=== PATIENT | male | born 1945 | race Caucasian/White ===

== ENCOUNTER 2017-07-26 10:31 | Outpatient (CLI) | payer MEDICARE, OTHER ==
[~2017-07-26] VITALS: Ht 188 cm; Wt 80.9 kg
--- NOTE | ~2017-07-26 | HEMODYNAMI ---
PATIENT:ORA BOLAÑOS MEDICAL RECORD: [id number] : 47 LOCATION:EMILY ADMISSION DATE: 07/26/17 Generatedon:07/26/201713:30 Patient name: ORA BOLAÑOS Patient #: [id number] SSN: DO B: 1945 Date of study: 07/26/2017 Page: Of Hemodynamic Procedure Report Patient Data Patient Demographics Procedure consent was obtained First Name: ORA Gender: Male Last Name: MAMI : 1945 [facility] Initial: REA Age: 72 year(s) Patient #: [id number] Race: Unknown Additional ID: [id number] Contact details Address: [address] [place] [address] [address] State: [place] City: [place] Zip code: [address] Past Medical History Allergies: No known allergies Admission Admission Data Admission Date: 07/26/2017 Admission Time: 10:31 Height (in.): 6.2 BSA: 0.34 (m2) Height (cm.): 15.75 BMI: 3237.34 (kg/m2) Weight (lbs.): 177 Weight (kg.): 80.29 Lab Results Lab Result Date: 07/26/2017 Lab Result Time: 0:00 Biochemistry Name Units Result Min Max BUN mg/dl 13 --(--*-)-- 7 18 Creatinine mg/dl 1.1 --(--*-)-- 0.6 1.3 CBC Name Units Result Min Max Hemoglobin g/dl 11.1 *-(----)-- 13.5 17.5 Procedure Procedure Types Cath Procedure Diagnostic Procedure C [facility] w/Coronaries Sedation Charges Moderate Sedation up to 30 minutes Procedure Description Procedure Date Procedure Date: 07/26/2017 Procedure Start Time: 13:06 Procedure End Time: 13:29 Procedure Staff Name Function Anton Gonzalez MD Performing Physician Nguyen Bush RT Monitor Saman Lyons RT Scrub Sal Barnes RN Nurse Procedure Data Cath Procedure Fluoroscopy Diagnostic fluoroscopy Total fluoroscopy Time: 1.5 time: 1.5 min min Diagnostic fluoroscopy Total fluoroscopy dose: 384 dose: 384 mGy mGy Contrast Material Contrast Material Type Amount (ml) Isovue 300 64 Entry Location Entry Primary Successful Side Size Upsize Upsize Entry Closure Succes sful Closure Location (Fr) 1 (Fr) 2 (Fr) Remarks Device Remarks Femoral Right 5 Fr Exoseal artery Estimated blood loss: 5 ml Diagnostic catheters Device Type Used For End Catheter Placement MULTIPACK JL 4.0 5Fr Procedure catheter MULTIPACK 3DRC 5Fr Procedure catheter MULTIPACK Pigtail 5 Fr Procedure catheter Procedure Complications No complications Procedure Medications Medication Administration Route Dosage 0.9% NaCl I.V. 100 ml/hr Oxygen etCO2 Nasal cannula 2 l/min Heparin Flush Bag added to field 2 bags (1000units/500ml NS) Lidocaine 2% added to field 20 Radial Cocktail added to field 1 syringe (Verapomil 2mg/Nitro 400mcg/Heparin 1500units) Versed I.V. 1 mg Fentanyl I.V. 50 mcg Versed I.V. 1 mg Fentanyl I.V. 50 mcg Hemodynamics Rest BSA: 0.34 (m2) HGB: 11.1 (g/dl) O2 Consumption: Estimated: 37.41 (ml/min) O2 Con sumption indexed: Estimated:110.03 (ml/min/m) Heart Rate: 55 (bpm) Pressure Samples Time Site Value (mmHg) Purpose Heart Use Rate(bpm) 13:21 LV 187/-1,10 Snapshot 55 13:22 AO 183/68(111) Pullback 56 13:22 LV 191/47,17 Pullback 56 Gradients Valve Time Site 1 Site 2 Mean SEP/DFP Peak To Heart Use (mmHg) (sec/min) Peak Rate (mmHg) (bpm) Aortic 13:22 LV AO 7 21 8 56 191/47,17 183/68(111) Calculations Valve P-P Mean Valve Index Valve Source Name Gradient Area Flow (cm2) Aortic 8 7 8 7 Snapshots Pre Cath Intra NCS Post Cath Vital Signs Time Heart Resp SPO2 etCO2 NIBP (mmHg) Rhythm Pain Sedation Rate (ipm) (%) (mmHg) Status Level (bpm) 12:50:41 56 18 100 23.3 187/92(157) NSR 0 (11) 10(A) , No pain 12:55:34 55 14 100 12.7 183/80(151) NSR 0 (11) 10(A) , No pain 13:00:17 54 13 100 27.8 158/74(132) NSR 0 (11) 10(A) , No pain 13:05:03 54 12 100 27.8 145/72(121) NSR 0 (11) 10(A) , No pain 13:10:15 54 12 100 26.3 141/67(117) NSR 0 (11) 10(A) , No pain 13:15:32 53 14 100 0 169/80(142) NSR 0 (11) 9(A) , No pain 13:20:21 59 19 100 0 174/80(154) NSR 0 (11) 9(A) , No pain 13:25:10 57 19 100 0 174/81(145) NSR 0 (11) 10(A) , No pain Medications Time Medication Route Dose Verified Delivered Reason Notes E ffectiveness by by 12:53:36 0.9% NaCl I.V. 100 Sal Sal Per ml/hr Lorigan Lorigan physician RN RN 12:53:48 Oxygen etCO2 2 l/min Sal Sal Per Nasal Lorigan Lorigan physician cannula RN RN 12:54:08 Heparin Flush added 2 bags Sal Sal used for Bag to Lorigan Lorigan procedure (1000units/500ml field RN RN NS) 12:54:20 Lidocaine 2% added 20ml Sal Sal for local to vial Lorigan Lorigan anesthetic field RN RN 12:54:38 Radial Cocktail added 1 Sal Sal used for (Verapomil to syringe Lorigan Lorigan procedure 2mg/Nitro field RN RN 400mcg/Heparin 1500units) 12:55:47 Versed I.V. 1 mg Sal Sal for Lorigan Lorigan sedation RN RN 12:55:56 Fentanyl I.V. 50 mcg Sal Sal for Lorigan Lorigan sedation RN RN 13:11:34 Versed I.V. 1 mg Sal Sal for Lorigan Lorigan sedation RN RN 13:11:38 Fentanyl I.V. 50 mcg Sal Sal for Lorigan Lorigan sedation RN foot miter operator Log Time Note 12:34:12 Time tracking: Regular hours (M-F 7:00 - 5:00) 12:34:16 Plan of Care:Hemodynamics will remain stable., Cardiac rhythm will remain stable., Comfort level will be maintained., Respiratory function will remain adequate., Patient/ family verbilizes understanding of procedure., Procedure tolerated without complication., Recovers from procedure without complications.. 12:34:17 Signed procedure consent form obtained from patient. 12:34:24 H&P Date Dictated: 07/18/2017 Within 30 days and on chart., H&P Addendum completed by physician on day of procedure. (MUST COMPLETE FOR ALL OUTPATIENTS). 12:34:34 Patient allergic to No known allergies 12:36:12 Lab Result : BUN 13 mg/dl 12:36:12 Lab Result : Hemoglobin 11.1 g/dl 12:36:12 Lab Result : Creatinine 1.1 mg/dl 12:36:18 Sal Barnes RN sent for patient. Start room use. 12:40:05 Patient Height : 6.2 inches 12:40:14 Patient Weight : 177 lbs 12:41:13 Patient received from Pre/Post Procedure Room to CCL 1 Alert and oriented. Tansferred to table in Supine position. 12:41:15 Warm blankets applied, and tae hugger turned on for patient comfort. 12:41:15 Correct patient and procedure confirmed by team. 12:41:16 ECG and BP/O2 sat monitors applied to patient. 12:48:59 Vital chart was started 12:53:36 0.9% NaCl 100 ml/hr I.V. was administered by Sal Barnes RN; Per physician; 12:53:48 Oxygen 2 l/min etCO2 Nasal cannula was administered by Sal Barnes RN; Per physician; 12:54:08 Heparin Flush Bag (1000units/500ml NS) 2 bags added to field was administered by Sal Barnes RN; used for procedure; 12:54:09 Pre-procedure instructions explained to patient. 12:54:09 Pre-op teaching completed and patient verbalized understanding. 12:54:11 Family in patients room. 12:54:12 Patient NPO since Midnight. 12:54:14 Is the patient allergic to Iodine/contrast media? No. 12:54:16 Is patient on blood thinner?No 12:54:17 Patient diabetic? Yes. 12:54:18 If diabetic: On Metformin? Yes 12:54:20 Lidocaine 2% 20ml vial added to field was administered by Sal Barnes RN; for local anesthetic; 12:54:31 If on Metformin: Last Dose? 07/24/2017 12:54:38 Radial Cocktail (Verapomil 2mg/Nitro 400mcg/Heparin 1500units) 1 syringe added to field was administered by Sal Barnes RN; used for procedure; 12:54:39 Previous problem with sedation/anesthesia? No ? 12:54:40 Snore? No 12:54:42 Sleep apnea? No 12:54:43 Deviated septum? No 12:54:44 Opens mouth fully? Yes 12:54:44 Sticks out tongue? Yes 12:54:47 Airway obstruction? No ? 12:54:50 Dentures? No OUT 12:54:54 Modified Josh's test Ulnar < 7 seconds 12:54:56 Patient pain scale 0/10 ?. 12:55:00 IV patent on arrival in left hand with 0.9% NaCl at [facility]. 12:55:05 Lab results completed and on chart. 12:55:08 Right Radial & Right Groin area was prepped with chlora-prep and draped in sterile fashion 12:55:09 Alarms reviewed by R. N. 12:55:09 Sharps counted by scrub and verified by R.N. 12:55:11 Final Timeout: patient, procedure, and site verified with staff and physician. All members of the team are in agreement. 12:55:11 --------ALL STOP TIME OUT------ 12:55:13 Right Radial & Right Groin site verified by team. 12:55:17 Physical assessment completed. ASA score P 2 - A patient with mild systemic disease as per Anton Gonzalez MD. 12:55:20 Sedation plan: IV Moderate Sedation Medication:Versed, Fentanyl 12:55:34 Baseline sample Acquired. 12:55:40 Rhythm: sinus bradycardia 12:55:41 Full Disclosure recording started 12:55:45 Use device set Radial Dx or PCI 12:55:46 ACIST Syringe (62103) opened to sterile field. 12:55:47 Versed 1 mg I.V. was administered by Sal Barnes RN; for sedation; 12:55:52 Bag Decanter (2002) opened to sterile field. 12:55:53 ACIST Hand Control (55066) opened to sterile field. 12:55:54 ACIST Manifold (23290) opened to sterile field. 12:55:54 Tegaderm 4 x 4 (1626W) opened to sterile field. 12:55:55 Medline Cath Pack ([id number]) opened to sterile field. 12:55:56 Fentanyl 50 mcg I.V. was administered by Sal Barnes RN; for sedation; 12:55:56 DIAGNOSTIC WIRE .035 260cm J wire (167512) opened to sterile field. 12:55:57 MBrace Wrist Support ([id number]) opened to sterile field. 13:00:59 Zero performed for pressure channel P1 13:01:26 SHEATH 6Fr Prelude Radial ([id number]) opened to sterile field. 13:05:28 Procedure started. 13:06:03 Local anesthetic to right radial artery with Lidocaine 2% by Anton Gonzalez MD.INITIAL ACCESS ONLY 13:11:34 Versed 1 mg I.V. was administered by Sal Barnes RN; for sedation; 13:11:38 Fentanyl 50 mcg I.V. was administered by Sal Barnes RN; for sedation; 13:11:49 NO RADIAL 13:12:29 SHEATH 5Fr Prelude ([id number]) opened to sterile field. 13:12:45 Use device set Multipack Set 13:13:08 DIAGNOSTIC Multipack 5Fr catheter set ([id number]) opened to sterile field. 13:13:23 Local anesthetic to right femoral artery with Lidocaine 2% by Anton Gonzalez MD.ADDITIONAL ACCESS 13:14:22 A 5 Fr sheath was inserted into the Right Femoral artery 13:15:28 A MULTIPACK JL 4.0 5Fr catheter was advanced over the wire and used for Procedure. 13:16:36 LCA angiography performed. 13:18:09 Catheter exchanged over wire. 13:19:24 A MULTIPACK 3DRC 5Fr catheter was advanced over the wire and used for Procedure. 13:19:59 RCA angiography performed. 13:20:01 Catheter exchanged over wire. 13:20:21 A MULTIPACK Pigtail 5 Fr catheter was advanced over the wire and used for Procedure. 13:20:36 LV gram done using ALFARO 13:20:38 Injector settings: Ml/sec: 10, Volume: 20, 13:21:39 LV hemodynamics recorded. 13:22:06 EF : 45 % 13:24:28 Catheter removed. 13:24:40 EXOSEAL 5Fr (EX500) opened to sterile field. 13:25:28 Sheath removed intact; hemostasis achieved with Exoseal to the Right Femoral artery. 13:26:02 Procedure ended.(Physican Out) 13:26:48 Fluoroscopy time 01.50 minutes. 13::54 Fluoroscopy dose: 384 mGy 13:26:54 Flurop Dose total: 384 13:26:58 Contrast amount:Isovue 300 64ml. 13:27:00 Sharps counted by scrub and verified by R.N. 13:27:07 Post-op/insertion site Right Femoral artery dressed using a 4 x 4 and Tegaderm. 13:27:54 Post right femoral artery:stable, soft, clean and dry 13:28:01 Post procedure: right dorsailis pedis pulse 2+ Normal; easily identifiable; not easily obliterated. 13:28:04 Post-procedure physical assessment completed. ASA score P 2 - A patient with mild systemic disease as per Anton Gonzalez MD. 13:28:07 Post procedure rhythm: unchanged. 13:28:09 Estimated blood loss: 5 ml 13:28:11 Post procedure instruction explained to patient.Patient verbalizes understanding. 13:28:11 Patient needs reinforcement of post procedure teaching. 13:28:22 Procedure type changed to Cath procedure, Diagnostic procedure, LHC, LHC w/Coronaries, Sedation Charges, Moderate Sedation up to 30 minutes 13:29:11 Procedure and supply charges have been captured, reviewed, submitted and are correct. 13:29:13 Procedure Complication : No complications 13:29:17 Vital chart was stopped 13:29:17 See physician's report for complete and final results. 13:29:19 Report given to Pre/Post Procedure Room. 13:29:21 Patient transfered to Pre/Post Procedure Room with Bed. 13:29:27 Procedure ended. 13:29:27 Full Disclosure recording stopped 13:29:30 End room use (Document Last) Device Usage Item Name Manufacture Quantity Catalog Number Hospital Part Current M inimal Lot# / Charge Number Stock Stock Serial# Code ACIST Syringe Acist 1 32070 234695 213596 454156 2 0 (53890) [employer] Bag Decanter Microtek 1 2001S 042082 43451 291213 5 (2001S) Medical Inc. ACIST Hand Acist 1 71751 977615 914762 587236 5 Control (63977) [employer] Inc ACIST Manifold Acist 1 81432 052341 653608 492191 5 (41990) [employer] Inc Tegaderm 4 x 4 3M 1 1626W 474761 941753 914221 5 (1626W) Medline Cath Cardinal 1 [id number] 978317 92876 521924 5 [employer] ([id number]) DIAGNOSTIC WIRE St Randy 1 443657 756929 799821 629602 3 0 .035 260cm J wire (761510) MBrace Wrist Advanced 1 140-0250-00 274568 00901 476702 5 Support Vascular ([id number]) Dynamics SHEATH 6Fr Merit 1 [id number] 689383 291899 526618 5 Prelude Radial Medical ([id number]) SHEATH 5Fr Merit 1 [id number] 027220 173106 918985 5 Prelude Medical ([id number]) DIAGNOSTIC Cardinal 1 [id number] 791859 51147 191628 3 0 Multipack 5Fr Health catheter set (LF1323) MULTIPACK JL Cardinal 1 [id number] 5 4.0 5Fr Health catheter MULTIPACK 3DRC Cardinal 1 042401 5 5Fr catheter Health MULTIPACK Cardinal 1 [id number] 5 Pigtail 5 Fr Health catheter EXOSEAL 5Fr Cardinal 1 EX500 401997 132366 690777 1 0 (EX500) Health Signature Audit [place] Stage Time Signature Unsigned Intra-Procedure 07/26/2017 Nguyen Bush 1:29:57 PM RT(R) Signatures Monitor : Nguyen Bush Signature : RT Date : Time : [facility] [address] [place] [address]
[2017-07-26] MEDS ORDERED: LIPITOR40 MG PO (10:44)
[2017-07-26] MEDS ORDERED: BAYER CHEWABLE81 MG PO (10:44)
[2017-07-26] MEDS ORDERED: PACERONE200 MG PO (10:44)
[2017-07-26] MEDS ORDERED: COREG 3.1253.125 MG PO ×2 (10:47→17:35)
[2017-07-26] MEDS ORDERED: NEURONTIN 300300 MG PO (10:47)
[2017-07-26] MEDS ORDERED: TIROSINT13 MCG PO (10:48)
[2017-07-26] MEDS ORDERED: NORCO 7.5/325 T1 TA1 PO (10:48)
[2017-07-26] MEDS ORDERED: PROTONIX40 MG PO (10:49)
[2017-07-26] MEDS ORDERED: GLUCOPHAGE500 MG PO (10:49)
[2017-07-26] MEDS ORDERED: FERROUS SULFAT325 MG PO (10:49)
[2017-07-26 10:55] VITALS: BP 126/78; BMI 22.9
[2017-07-26 11:04] LABS: BASOPHILS 0.5 % (0-2); EOSINOPHILS 5.2 % (0-7); HEMATOCRIT 34.8 % (42.0-54.0); HEMOGLOBIN 11.1 g/dL (13.5-17.5); LYMPHOCYTES 29.3 % (15-50); MCH 29.2 pg (26.0-34.0); MCHC 31.9 g/dL (31.0-37.0); MCV 91.6 fL (80.0-100.0); MEAN PLATELET VOLUME 10.6 fL (7.4-10.4); MONOCYTES 11.1 % (2-11); NEUTROPHILS 53.9 % (40-80); PLATELET COUNT 165 10x3/uL (130-400); RDW 16.9 % (11.5-14.5); WBC 3.9 10x3/uL (4.8-10.8)
[2017-07-26 11:17] LABS: ANION GAP 14.9 mmol/L (8-16); CARBON DIOXIDE 24.5 mmol/L (21.0-32.0); CREATININE - SERUM 1.1 mg/dL (0.6-1.3); POTASSIUM - SERUM 4.4 mmol/L (3.5-5.1)
[2017-07-26 16:20] VITALS: Ht 188 cm; Wt 80.9 kg
[2017-07-26 16:36] LABS: APTT 25.6 SECONDS (22.8-39.4); INR 1.09 (0.85-1.17); PROTIME 13.7 SECONDS (11.6-15.0)
[2017-07-26 16:50] LABS: PHOSPHOROUS 3.2 mg/dL (2.5-4.9); T4 THYROXIN - FREE 1.47 ng/dL (0.76-1.46); THYROID STIMULATING HORMONE 1.12 uIU/mL (0.36-3.74); URIC ACID 2.9 mg/dL (2.6-7.2)
[2017-07-26 17:56] LABS: ALBUMIN 3.5 g/dL (3.4-5.0); ALKALINE PHOSPHATASE 74 U/L (46-116); ALT (SGPT) 29 U/L (10-68); CALC OSMOLALITY 286 mosm/kg (275-300); CALCIUM 8.9 mg/dL (8.5-10.1); CARBON DIOXIDE 23.7 mmol/L (21.0-32.0); CHLORIDE - SERUM 109 mmol/L (98-107); GLUCOSE 138 mg/dL (74-106); POTASSIUM - SERUM 4.1 mmol/L (3.5-5.1); PROTEIN - SERUM 6.1 g/dL (6.4-8.2); SODIUM 143 mmol/L (136-145); UREA NITROGEN 13 mg/dL (7-18); eGFR NON AFRICAN AMERICAN 78 mL/min (90-120)
[2017-07-26 18:44] LABS: APPEARANCE CLEAR (CLEAR); BILIRUBIN NEGATIVE (NEGATIVE); COLOR YELLOW (YELLOW); GLUCOSE NEGATIVE (NEGATIVE); KETONE NEGATIVE (NEGATIVE); NITRITE NEGATIVE (NEGATIVE); PROTEIN NEGATIVE (NEGATIVE); SPECIFIC GRAVITY 1.015 (1.005-1.020); UROBILINOGEN NORMAL (NORMAL)
== END 2017-07-26 17:15 | disposition home or self-care (01) ==
LOC: D.CATH 10:31
PROVIDERS: Internal Medicine Cardiovascular Disease; Thoracic Surgery (Cardiothoracic Vascular Surgery)
DX: I25.119 Atherosclerotic heart disease of native coronary artery with unspecified angina pectoris (principal); I51.9 Heart disease, unspecified; Z01.812 Encounter for preprocedural laboratory examination

== ENCOUNTER 2017-07-28 05:08 | Inpatient (IN) | payer MEDICARE, OTHER ==
[~2017-07-28] VITALS: Ht 188 cm; Wt 79.5 kg
[2017-07-28] VITALS (48 sets, daily range): BP systolic 103–177; BP diastolic 43–81; BMI 22.9; BMI 23.8
--- NOTE | ~2017-07-28 | OP ---
PATIENT NAME: ORA BOLAÑOS MEDICAL RECORD: [id number] :47 LOCATION:[facility] ADMISSION DATE:07/28/17 SURGEON: GAETANO BUCKNER MD DATE OF OPERATION: 07/28/2017 SURGEON: Gaetano Buckner MD SPECIAL DIET COOK: Jacki Shirley MD and TAL Delacruz PREOPERATIVE DIAGNOSES: Coronary artery disease with previous myocardial infarction and life threatening GI bleed. PROCEDURE PERFORMED: Coronary artery bypass graft times 3 (left internal mammary to LAD, reverse saphenous vein graft from aorta to diagonal and aorta to posterior descending artery). POSTOPERATIVE DIAGNOSES: Coronary artery disease, ischemic mitral regurgitation preop, and aortic insufficiency. ANESTHESIA: General endotracheal anesthesia. ESTIMATED BLOOD LOSS: Total cardiopulmonary bypass with Cell Saver re-transfusion of 1 unit packed red blood cells due to preoperative anemia. COMPLICATIONS: None. SPECIMENS: Internal mammary artery lymph node for permanent specimen. CONDITION: Stable. DISPOSITION: ICU. OPERATIVE FINDINGS: 1. Transesophageal echocardiography revealed 1+ aortic insufficiency, which was unchanged following coronary artery bypass graft, 2+ mitral regurgitation, which was reduced to trace regurgitation after revascularization, normal ventricular function. 2. Good quality left internal mammary artery. The LAD was a 1.5 mm vessel deep in the intramyocardial segment and thin walled. There was good Doppler signal after anastomosis and after separation from cardiopulmonary bypass. 3. Large first diagonal vessel was 2.0 mm with severe disease. 4. No sizable obtuse marginal vessel was available for bypass, possibly with intramyocardial. 5. Posterior descending artery 2.0 mm vessel proximally with distal disease noted and the right coronary artery was calcified. 6. The patient from cardiopulmonary bypass in sinus rhythm without vasopressors. OPERATIVE INDICATION: Recent myocardial infarction and life threatening gastrointestinal bleed with past history of atrial fibrillation. OPERATIVE SUMMARY IN DETAIL: The patient was brought to the operating suite. General anesthesia was obtained. The patient was prepped and draped. Greater saphenous vein was harvested from the right lower extremity utilizing bridging incisions. Side branches were clipped or tied. The vein was later closed in 2 OPERATIVE REPORT [id number] ORA BOLAÑOS layers. Median sternotomy incision was made. Subcutaneous tissue was divided with electrocautery. The sternum was divided with a saw. The left hemisternum was elevated. The left pleural cavity was entered. Left internal mammary artery and vein was taken down as a pedicle graft. Sternal retractor was placed. Pericardium was opened. Heparin was given. The area was cannulated. Dual stage venous cannula was inserted. The internal mammary was clipped distally and made ready for anastomosis. The patient placed on cardiopulmonary bypass. Sites for distal anastomoses were selected. The patient's temperature was allowed to drift. Crossclamp was placed. Cardioplegia was given antegrade and this was repeated at 15-minute intervals including down the completed vein grafts. Distal anastomoses were performed in a standard technique and proximal anastomosis in a single crossclamp technique, allowing aortic root venting after removing the crossclamp, tying the proximal anastomosis and restoring flow. The patient was fully rewarmed, weaned off cardiopulmonary bypass and was stable. The patient was decannulated. Protamine was given. Drains were placed in the mediastinum and left pleural cavity. Hemostasis was ensured. Pericardial fat was loosely reapproximated. Single ventricular pacing wires were placed. Left chest was evacuated and irrigated. The internal mammary harvest site was without bleeding. Sternum was closed with wires. The patient was stable, the chest closed. Fascia was closed, subcutaneous tissue was closed, skin was closed. Dermabond was placed. The needle and sponge counts were reported as correct. The patient was taken to ICU in stable condition. TRANSINT:[id number] Voice Confirmation ID: [id number] DOCUMENT ID: [id number] GAETANO BUCKNER MD at 1049 CC: [id number] DICTATION DATE: 07/28/17 1417 SEWAGE SCREEN OPERATOR: 07/28/17 1610 ADM IN [place] [id number] [place] [address]
--- NOTE | ~2017-07-28 | TEE ---
PATIENT:ORA BOLAÑOS MEDICAL RECORD: [id number] LOCATION:[place] [address] AGE OF PATIENT: 72 ADMISSION DATE: 07/28/17 SEX: M REFERRING PHYSICIAN: INTERPRETING PHYSICIAN: MUSHTAQ ESPARZA MD TRANSESOPHAGEAL ECHOCARDIOGRAM Date: 07/28/17 SMILEY CHARGE Y INDICATIONS: CABG PREMEDICATIONS: PATIENT'S RESPONSE PROCEDURE DOPPLER MEASUREMENTS: LVIT LA PA RA LVOT RVOT Asc. Ao AV Gradient Peak AV Mean AV Area MV Gradient Peak MV Mean MV Area INTERPRETATION: Doppler: 2-D: COLOR FLOW DOPPLER NORMAL SALINE STUDY: MISCELLANOUS: DIAGNOSIS: PLAN: Quality Assistant:2 Dr. Gonzalez Director Equipment: Kinsey INMAN COMMENTS: DUDLEY PATIENT DATE OF SERVICE: 07/28/2017 PROCEDURE: Transesophageal echo evaluation of valvular structures during coronary bypass graft surgery. FINDINGS: 1. Left ventricular chamber size is within normal limits. Left ventricular systolic function is normal. Overall ejection fraction estimated at 55% to 60%. 2. Left atrium, right atrium, and right ventricle chamber sizes are mildly TRANSESOPHAGEAL ECHOCARDIOGRAM REPORT [id number] ORA BOLAÑOS. 3. Valvular structures have normal structure and motion. 4. Doppler interrogation reveals moderate mitral regurgitation, [id number] aortic insufficiency. No other valvular insufficiency or stenosis. 5. No evidence of pericardial effusion or left ventricular thrombus. TRANSINT:[id number] Voice Confirmation ID: [id number] DOCUMENT ID: [id number] at 1006 CC: [id number] DICTATION DATE: 07/31/17 1049 HYDROTREATER OPERATOR: 07/31/17 1354 ADM IN [place] [id number] [place] [address]
[~2017-07-28 05:08] MED LIST: BAYER CHEWABLE81 MG PO; COREG 3.1253.125 MG PO; FERROUS SULFAT325 MG PO; GLUCOPHAGE500 MG PO; LIPITOR40 MG PO; NEURONTIN 300300 MG PO; NORCO 7.5/325 T1 TA1 PO; PACERONE200 MG PO; PROTONIX40 MG PO; TIROSINT13 MCG PO
[2017-07-28 07:39] LABS: PLT FUNCT.(P2Y12) PLAVIX 354 PRU (194-418)
[2017-07-28 12:06] LABS: HEMATOCRIT 32.9 % (42.0-54.0); HEMOGLOBIN 10.5 g/dL (13.5-17.5); MCH 28.9 pg (26.0-34.0); MCHC 31.9 g/dL (31.0-37.0); MCV 90.6 fL (80.0-100.0); MEAN PLATELET VOLUME 10.4 fL (7.4-10.4); RBC 3.63 10x6/uL (4.20-6.10); RDW 16.4 % (11.5-14.5); WBC 7.2 10x3/uL (4.8-10.8)
[2017-07-28 12:18] LABS: APTT 33.9 SECONDS (22.8-39.4)
[2017-07-28 12:22] LABS: INR 1.45 (0.85-1.17); PROTIME 17.1 SECONDS (11.6-15.0)
[2017-07-28 12:24] LABS: CALC OSMOLALITY 289 mosm/kg (275-300); CALCIUM 7.3 mg/dL (8.5-10.1); CARBON DIOXIDE 22.1 mmol/L (21.0-32.0); CHLORIDE - SERUM 111 mmol/L (98-107); GLUCOSE 104 mg/dL (74-106); POTASSIUM - SERUM 3.8 mmol/L (3.5-5.1); SODIUM 145 mmol/L (136-145); UREA NITROGEN 14 mg/dL (7-18); eGFR NON AFRICAN AMERICAN 78 mL/min (90-120)
[2017-07-29] VITALS (23 sets, daily range): BP systolic 97–147; BP diastolic 46–65; Ht 188 cm; Wt 79.5 kg
[2017-07-29 05:11] LABS: HEMATOCRIT 31.8 % (42.0-54.0); HEMOGLOBIN 10.2 g/dL (13.5-17.5); MCH 29.3 pg (26.0-34.0); MCHC 32.1 g/dL (31.0-37.0); MCV 91.4 fL (80.0-100.0); MEAN PLATELET VOLUME 11.4 fL (7.4-10.4); RBC 3.48 10x6/uL (4.20-6.10); RDW 17.5 % (11.5-14.5); WBC 8.3 10x3/uL (4.8-10.8)
[2017-07-29 05:32] LABS: ALBUMIN 2.5 g/dL (3.4-5.0); ALKALINE PHOSPHATASE 34 U/L (46-116); ALT (SGPT) 17 U/L (10-68); BILIRUBIN - TOTAL 0.68 mg/dL (0.2-1.3); CALC OSMOLALITY 282 mosm/kg (275-300); CARBON DIOXIDE 23.6 mmol/L (21.0-32.0); CHLORIDE - SERUM 108 mmol/L (98-107); GLUCOSE 123 mg/dL (74-106); PROTEIN - SERUM 4.9 g/dL (6.4-8.2); SODIUM 141 mmol/L (136-145); UREA NITROGEN 16 mg/dL (7-18); eGFR NON AFRICAN AMERICAN 78 mL/min (90-120)
[2017-07-29 05:38] LABS: POTASSIUM - SERUM 3.7 mmol/L (3.5-5.1)
[2017-07-30] VITALS (23 sets, daily range): BP systolic 95–135; BP diastolic 47–69
[2017-07-30 05:50] LABS: HEMATOCRIT 32.8 % (42.0-54.0); HEMOGLOBIN 10.1 g/dL (13.5-17.5); MCH 29.2 pg (26.0-34.0); MCHC 30.8 g/dL (31.0-37.0); RBC 3.46 10x6/uL (4.20-6.10); RDW 17.2 % (11.5-14.5); WBC 9.5 10x3/uL (4.8-10.8)
[2017-07-30 05:57] LABS: MCV 94.8 fL (80.0-100.0)
[2017-07-30 06:08] LABS: ALBUMIN 2.6 g/dL (3.4-5.0); ANION GAP 11.9 mmol/L (8-16); BILIRUBIN - TOTAL 0.9 mg/dL (0.2-1.3); CALCIUM 7.8 mg/dL (8.5-10.1); CARBON DIOXIDE 26.8 mmol/L (21.0-32.0); POTASSIUM - SERUM 4.7 mmol/L (3.5-5.1); PROTEIN - SERUM 5.3 g/dL (6.4-8.2)
[2017-07-30 06:11] LABS: CREATININE - SERUM 1.3 mg/dL (0.6-1.3)
[2017-07-31] VITALS (26 sets, daily range): BP systolic 91–147; BP diastolic 48–70
[2017-07-31 06:24] LABS: HEMATOCRIT 29.5 % (42.0-54.0); HEMOGLOBIN 9.4 g/dL (13.5-17.5); MCH 29.7 pg (26.0-34.0); MCHC 31.9 g/dL (31.0-37.0); MCV 93.1 fL (80.0-100.0); RBC 3.17 10x6/uL (4.20-6.10); RDW 16.6 % (11.5-14.5)
[2017-07-31 06:29] LABS: WBC 6.9 10x3/uL (4.8-10.8)
[2017-07-31 06:44] LABS: ALBUMIN 2.2 g/dL (3.4-5.0); BILIRUBIN - TOTAL 0.83 mg/dL (0.2-1.3); CALCIUM 7.9 mg/dL (8.5-10.1); CARBON DIOXIDE 25.2 mmol/L (21.0-32.0); CREATININE - SERUM 1.1 mg/dL (0.6-1.3); POTASSIUM - SERUM 4.2 mmol/L (3.5-5.1); PROTEIN - SERUM 5.1 g/dL (6.4-8.2)
[2017-08-01] VITALS (24 sets, daily range): BP systolic 93–148; BP diastolic 43–96
[2017-08-01 05:00] LABS: HEMATOCRIT 31.7 % (42.0-54.0); HEMOGLOBIN 9.9 g/dL (13.5-17.5); MCH 28.9 pg (26.0-34.0); MCHC 31.2 g/dL (31.0-37.0); MCV 92.7 fL (80.0-100.0); MEAN PLATELET VOLUME 10.1 fL (7.4-10.4); RBC 3.42 10x6/uL (4.20-6.10); RDW 16.1 % (11.5-14.5); WBC 6.1 10x3/uL (4.8-10.8)
[2017-08-01 05:34] LABS: ALBUMIN 2.3 g/dL (3.4-5.0); ANION GAP 14.3 mmol/L (8-16); BILIRUBIN - TOTAL 0.87 mg/dL (0.2-1.3); CALCIUM 7.7 mg/dL (8.5-10.1); CARBON DIOXIDE 25.9 mmol/L (21.0-32.0); CREATININE - SERUM 1.2 mg/dL (0.6-1.3); POTASSIUM - SERUM 4.2 mmol/L (3.5-5.1); PROTEIN - SERUM 5.6 g/dL (6.4-8.2)
[2017-08-02] VITALS (24 sets, daily range): BP systolic 94–141; BP diastolic 47–68
[2017-08-02 04:36] LABS: HEMATOCRIT 30.7 % (42.0-54.0); HEMOGLOBIN 9.8 g/dL (13.5-17.5); MCHC 31.9 g/dL (31.0-37.0); MCV 90.8 fL (80.0-100.0); MEAN PLATELET VOLUME 9.7 fL (7.4-10.4); RBC 3.38 10x6/uL (4.20-6.10); RDW 15.9 % (11.5-14.5)
[2017-08-02 04:42] LABS: ALBUMIN 2.2 g/dL (3.4-5.0); BILIRUBIN - TOTAL 0.65 mg/dL (0.2-1.3); CALCIUM 7.7 mg/dL (8.5-10.1); CARBON DIOXIDE 29.8 mmol/L (21.0-32.0); CREATININE - SERUM 1.1 mg/dL (0.6-1.3); PROTEIN - SERUM 5.3 g/dL (6.4-8.2)
[2017-08-02 04:51] LABS: WBC 4.1 10x3/uL (4.8-10.8)
[2017-08-02 04:55] LABS: ANION GAP 10.6 mmol/L (8-16); POTASSIUM - SERUM 3.4 mmol/L (3.5-5.1)
[2017-08-03] VITALS (23 sets, daily range): BP systolic 93–130; BP diastolic 41–75
[2017-08-03 09:07] LABS: HEMOGLOBIN 10.1 g/dL (13.5-17.5); MCH 28.9 pg (26.0-34.0); MCHC 31.6 g/dL (31.0-37.0); MCV 91.4 fL (80.0-100.0); MEAN PLATELET VOLUME 9.7 fL (7.4-10.4); RBC 3.5 10x6/uL (4.20-6.10); WBC 5.1 10x3/uL (4.8-10.8)
[2017-08-03 09:25] LABS: ALBUMIN 2.3 g/dL (3.4-5.0); BILIRUBIN - TOTAL 0.72 mg/dL (0.2-1.3); CALCIUM 8.4 mg/dL (8.5-10.1); CARBON DIOXIDE 29.1 mmol/L (21.0-32.0); CREATININE - SERUM 1.3 mg/dL (0.6-1.3); PROTEIN - SERUM 5.6 g/dL (6.4-8.2)
[2017-08-03 09:32] LABS: POTASSIUM - SERUM 4.1 mmol/L (3.5-5.1)
[2017-08-04] VITALS (10 sets, daily range): BP systolic 93–132; BP diastolic 45–74
[2017-08-04 06:09] LABS: HEMATOCRIT 33.9 % (42.0-54.0); HEMOGLOBIN 10.8 g/dL (13.5-17.5); MCH 29.1 pg (26.0-34.0); MCHC 31.9 g/dL (31.0-37.0); MCV 91.4 fL (80.0-100.0); MEAN PLATELET VOLUME 9.2 fL (7.4-10.4); RBC 3.71 10x6/uL (4.20-6.10); RDW 16.1 % (11.5-14.5)
[2017-08-04 06:10] LABS: WBC 6.5 10x3/uL (4.8-10.8)
[2017-08-04 06:24] LABS: ANION GAP 10.3 mmol/L (8-16); CALCIUM 8.5 mg/dL (8.5-10.1); CARBON DIOXIDE 30.9 mmol/L (21.0-32.0); CREATININE - SERUM 1.4 mg/dL (0.6-1.3); POTASSIUM - SERUM 4.2 mmol/L (3.5-5.1)
[2017-08-04] MEDS ORDERED: HEMOCYTE PLUS C1 CAP PO (08:42)
[2017-08-04] MEDS ORDERED: CORDARONE200 MG PO (08:42)
[2017-08-04] MEDS ORDERED: PACERONE200 MG PO (08:44)
[2017-08-04] MEDS ORDERED: HYDROCODONE-APA1 TAB PO (08:45)
== END 2017-08-04 10:50 | disposition home or self-care (01) | DRG 236 ==
LOC: D.CVICU 05:08 → D.SDCHOLD 05:08 → D.CVICU 11:39
PROVIDERS: Internal Medicine Cardiovascular Disease; Thoracic Surgery (Cardiothoracic Vascular Surgery)
PROC: 021109W Bypass Coronary Artery, Two Arteries from Aorta with Autologous Venous Tissue, Open Approach (ICD-10-PCS; 2017-07-28)
PROC: 06BP0ZZ Excision of Right Saphenous Vein, Open Approach (ICD-10-PCS; 2017-07-28)
PROC: 5A1221Z Performance of Cardiac Output, Continuous (ICD-10-PCS; 2017-07-28)
PROC: B24BZZ4 Ultrasonography of Heart with Aorta, Transesophageal (ICD-10-PCS; 2017-07-28)
PROC: 0210099 Bypass Coronary Artery, One Artery from Left Internal Mammary with Autologous Venous Tissue, Open Approach (ICD-10-PCS; principal; 2017-07-28 07:30)
DX: I25.10 Atherosclerotic heart disease of native coronary artery without angina pectoris (principal); J98.11 Atelectasis; I25.2 Old myocardial infarction; I48.0 Paroxysmal atrial fibrillation

== ENCOUNTER → 2017-08-23 08:49 | Outpatient (CLI) | payer MEDICARE, OTHER ==
[2017-07-29 07:14] VITALS: BMI 24.9
[~2017-08-23 08:49] MED LIST changes: +CORDARONE200 MG PO; +HEMOCYTE PLUS C1 CAP PO; +HYDROCODONE-APA1 TAB PO
[2017-08-23 09:43] LABS: HEMATOCRIT 33.9 % (42.0-54.0); HEMOGLOBIN 10.5 g/dL (13.5-17.5); MCH 28.1 pg (26.0-34.0); MCV 90.6 fL (80.0-100.0); RBC 3.74 10x6/uL (4.20-6.10); RDW 15.6 % (11.5-14.5); WBC 4.2 10x3/uL (4.8-10.8)
[2017-08-23 10:14] LABS: ALBUMIN 3.1 g/dL (3.4-5.0); ANION GAP 13.7 mmol/L (8-16); BILIRUBIN - TOTAL 0.38 mg/dL (0.2-1.3); CALCIUM 8.9 mg/dL (8.5-10.1); CARBON DIOXIDE 25.9 mmol/L (21.0-32.0); CREATININE - SERUM 1.2 mg/dL (0.6-1.3); POTASSIUM - SERUM 4.6 mmol/L (3.5-5.1); PROTEIN - SERUM 6.4 g/dL (6.4-8.2)
== END | disposition home or self-care (01) ==
LOC: D.LAB 08:49
PROVIDERS: Thoracic Surgery (Cardiothoracic Vascular Surgery)
DX: J91.8 Pleural effusion in other conditions classified elsewhere (principal); D64.9 Anemia, unspecified

== ENCOUNTER 2017-09-28 16:53 | Inpatient (IN) | payer MEDICARE, OTHER ==
[~2017-09-28] VITALS: Ht 188 cm; Wt 81.8 kg
[2017-09-28] MEDS ORDERED: NORCO 7.5/325 T1 TA1 PO (17:22)
[2017-09-28 18:26] LABS: BASOPHILS 0.6 % (0-2); EOSINOPHILS 3.8 % (0-7); HEMATOCRIT 24.9 % (42.0-54.0); IMMATURE GRANULOCYTES 0.2 % (0-5); MCH 24.1 pg (26.0-34.0); MCHC 29.3 g/dL (31.0-37.0); MCV 82.2 fL (80.0-100.0); MEAN PLATELET VOLUME 9.8 fL (7.4-10.4); MONOCYTES 8.7 % (2-11); NEUTROPHILS 50.7 % (40-80); PLATELET COUNT 219 10x3/uL (130-400); RBC 3.03 10x6/uL (4.20-6.10); RDW 17.8 % (11.5-14.5); WBC 4.7 10x3/uL (4.8-10.8)
[2017-09-28 18:32] LABS: HEMOGLOBIN 7.3 g/dL (13.5-17.5)
[2017-09-28 18:44] LABS: ALBUMIN 3.6 g/dL (3.4-5.0); ALKALINE PHOSPHATASE 90 U/L (46-116); ALT (SGPT) 19 U/L (10-68); BILIRUBIN - TOTAL 0.37 mg/dL (0.2-1.3); CALC OSMOLALITY 288 mosm/kg (275-300); CALCIUM 8.6 mg/dL (8.5-10.1); CARBON DIOXIDE 25.1 mmol/L (21.0-32.0); CHLORIDE - SERUM 106 mmol/L (98-107); CREATININE - SERUM 1.3 mg/dL (0.6-1.3); GLUCOSE 145 mg/dL (74-106); POTASSIUM - SERUM 4.3 mmol/L (3.5-5.1); PROTEIN - SERUM 6.5 g/dL (6.4-8.2); SODIUM 143 mmol/L (136-145); TROPONIN-I < 0.017 ng/mL (0.000-0.060); UREA NITROGEN 16 mg/dL (7-18); eGFR NON AFRICAN AMERICAN 58 mL/min (90-120)
[2017-09-28 19:00] VITALS: BP 147/58
[2017-09-28 20:00] VITALS: BP 158/63
[2017-09-28 21:00] VITALS: BP 152/65
[2017-09-28 21:09] LABS: COLOR YELLOW (YELLOW)
[2017-09-28 21:10] LABS: APPEARANCE CLEAR (CLEAR); BILIRUBIN NEGATIVE (NEGATIVE); GLUCOSE NEGATIVE (NEGATIVE); KETONE NEGATIVE (NEGATIVE); NITRITE NEGATIVE (NEGATIVE); PROTEIN NEGATIVE (NEGATIVE); UROBILINOGEN NORMAL (NORMAL)
[2017-09-28 22:00] VITALS: BP 153/77
[2017-09-28 23:00] VITALS: BP 139/58
[2017-09-29] VITALS (8 sets, daily range): BP systolic 113–160; BP diastolic 45–77
[2017-09-29 06:36] LABS: BASOPHILS 0.5 % (0-2); EOSINOPHILS 2.8 % (0-7); HEMATOCRIT 28.3 % (42.0-54.0); HEMOGLOBIN 8.7 g/dL (13.5-17.5); LYMPHOCYTES 31.7 % (15-50); MCH 25.4 pg (26.0-34.0); MCHC 30.7 g/dL (31.0-37.0); MCV 82.5 fL (80.0-100.0); MEAN PLATELET VOLUME 10.1 fL (7.4-10.4); MONOCYTES 11.6 % (2-11); NEUTROPHILS 53.4 % (40-80); RBC 3.43 10x6/uL (4.20-6.10); RDW 17.2 % (11.5-14.5); WBC 4.2 10x3/uL (4.8-10.8)
[2017-09-29 06:53] LABS: PLATELET COUNT 163 10x3/uL (130-400)
[2017-09-29 07:08] LABS: INR 1.2 (0.85-1.17); PROTIME 14.8 SECONDS (11.6-15.0)
[2017-09-29 07:19] LABS: ANION GAP 13.3 mmol/L (8-16); CALCIUM 8.5 mg/dL (8.5-10.1); CARBON DIOXIDE 25.5 mmol/L (21.0-32.0); CREATININE - SERUM 1.2 mg/dL (0.6-1.3); POTASSIUM - SERUM 3.8 mmol/L (3.5-5.1)
[2017-09-30] VITALS: BP 133/52
[2017-09-30 00:25] VITALS: BP 155/55; Ht 188 cm; Wt 81.8 kg
[2017-09-30 04:52] VITALS: BP 136/71
[2017-09-30 06:44] LABS: BASOPHILS 0.5 % (0-2); EOSINOPHILS 4.2 % (0-7); HEMATOCRIT 28.4 % (42.0-54.0); HEMOGLOBIN 8.6 g/dL (13.5-17.5); LYMPHOCYTES 33.8 % (15-50); MCH 25.2 pg (26.0-34.0); MCHC 30.3 g/dL (31.0-37.0); MCV 83.3 fL (80.0-100.0); MEAN PLATELET VOLUME 10.6 fL (7.4-10.4); MONOCYTES 9.6 % (2-11); NEUTROPHILS 51.9 % (40-80); PLATELET COUNT 179 10x3/uL (130-400); RBC 3.41 10x6/uL (4.20-6.10); RDW 17.6 % (11.5-14.5); WBC 4.1 10x3/uL (4.8-10.8)
[2017-09-30 06:59] LABS: ANION GAP 13.5 mmol/L (8-16); BILIRUBIN - TOTAL 0.52 mg/dL (0.2-1.3); CALCIUM 8.5 mg/dL (8.5-10.1); CARBON DIOXIDE 27.4 mmol/L (21.0-32.0); CREATININE - SERUM 1.2 mg/dL (0.6-1.3); POTASSIUM - SERUM 3.9 mmol/L (3.5-5.1); PROTEIN - SERUM 5.8 g/dL (6.4-8.2)
[2017-09-30 08:49] VITALS: BP 125/59
[2017-09-30 12:21] VITALS: BP 131/57
[2017-09-30] MEDS ORDERED: OMNICEF300 MG PO (15:27)
[2017-09-30 17:09] VITALS: BP 136/61
== END 2017-09-30 17:51 | disposition home or self-care (01) | DRG 377 ==
LOC: D.ER 16:53 → D.EDHOLD 22:08 → D.MS 09-29 20:30
PROVIDERS: Family Medicine; Internal Medicine Gastroenterology
PROC: 0DB78ZX Excision of Stomach, Pylorus, Via Natural or Artificial Opening Endoscopic, Diagnostic (ICD-10-PCS; principal; 2017-09-29 12:30)
DX: K92.2 Gastrointestinal hemorrhage, unspecified (principal); J18.9 Pneumonia, unspecified organism; D64.9 Anemia, unspecified; I10 Essential (primary) hypertension; I48.0 Paroxysmal atrial fibrillation; K21.0 Gastro-esophageal reflux disease with esophagitis

== ENCOUNTER → 2019-02-15 10:39 | Outpatient (CLI) | payer MEDICARE, OTHER ==
[2017-09-30 00:25] VITALS: BMI 23.1
[~2019-02-15 10:39] MED LIST changes: +OMNICEF300 MG PO
== END | disposition home or self-care (01) ==
LOC: D.HCCECHO 10:39
PROVIDERS: ATTEND Internal Medicine Cardiovascular Disease
DX: I25.10 Atherosclerotic heart disease of native coronary artery without angina pectoris (principal)